=== PATIENT | female | born 1975 | race Hispanic/Latino ===

== ENCOUNTER 2020-12-15 19:48 | Emergency (ER) | payer SELFPAY ==
[2020-12-15] MEDS ORDERED: Ketorolac Tromethamine 30 MG/ML VIAL ONE (22:31)
[2020-12-15] MEDS ORDERED: predniSONE 20 MG TAB ONE (22:31)
== END 2020-12-15 23:02 | disposition home or self-care (01) ==
LOC: ERS 19:48
DX: M54.42 Lumbago with sciatica, left side (principal); F17.210 Nicotine dependence, cigarettes, uncomplicated
CPT/HCPCS: 96372; 99283; J1885; J7512